=== PATIENT | female | born 1995 | race Caucasian/White ===

== ENCOUNTER 2019-01-10 12:06 | Inpatient (IN) | payer OTHER ==
[~2019-01-10] VITALS: Ht 160 cm; Wt 54.5 kg
[2019-01-10 13:15] VITALS: BP 97/64
--- NOTE | 2019-01-10 13:56 | PDOC2 ---
GI CONSULT Reason For Consult: Anemia HPI: HPI: 23 y/o female who sees Dr. Atkinson. Complicated Crohn's history s/p proctocolectomy w/ J-pouch, then developed active disease w/ fistula, had diverting ileostomy but ultimately pouch removal w/ end ileostomy. Last surgery in 2015. Currently on Entyvio - I believe last on 11/29/18, issues w/ non- compliance/missed dose prior to this. Ill for 2 weeks w/ fatigue, shortness of breath, "feeling like I'm gonna ." Long h/o SABRINA. Had outpt labs - Hgb was 4.7. Our office contacted her w/ recommendations for admission to the hospital for transfusion, additional labs including retic count, hematology evaluation, and MR enterography. No hematemesis, hematochezia, or melena. No reflux/heartburn, dysphagia, n/v, change in appetite, weight loss, abd pain, or change in bowel habits. Normal ostomy output - typically empties bag 2-4 times daily. No GB, liver, pancreas, or PUD history. Tells me doesn't take iron or B12 - Injectafer earlier this year (?last on 10/08/18). No NSAIDs. No menorrhagia. Previous hematology eval w/ Dr. Worrell @ [facility] - reports normal bone marrow biopsy. EGD in 2013 was normal except for H. pylori negative gastritis. Admitted to [facility] in 08/2016 w/ SBO, fistulogram could not exclude stenosis at ostomy. Ileoscopy by Dr. Atkinson on 10/25/16 showed patchy inflammation, moderate in severity and characterized by congestion (edema), erythema, friability, granularity and aphthous ulcerations in the distal ileum, erythema at ostomy site, and ostomy opening kinked down and to the right. Eval at [place] in 12/2016 - was anemic and transfused, MR enterography showed active Crohn's w/ inflammation and possible fibrotic stricture of neoterminal ileum. 7.5cm of affected ileum w/ moderate dilation of distal small bowel upstream from probable stricture. (Entyvio recommended then w/ consideration for methotrexate.) No previous SBCE. Past treatments includ Cimzia, Humira, Remicade, Imuran, Methotrexate. H/o C Diff. Missing the [employer] - her preference is to have transfusion and discharge BRIAN. PMH: PMH: asthma, debridement of perineal wound + HPI FH: Family History: Cancer (breast), DM, Hypertension, Other (MGF - colon polyps) Social History: Smoke: No ALCOHOL: none Drugs: None ROS: GEN: +fatigue HEENT: Denies blurred vision, sore throat CV: Denies chest pain RESP: +SOA GI: Per HPI : Denies hematuria, dysuria ENDO: Denies weight changes NEURO: Denies confusion, dizziness MSK: +weakness SKIN: Denies jaundice, pruritus Vitals: Vitals: Vital Signs Date Time Temp Pulse Resp B/P (MAP) Pulse Ox O2 Delivery O2 Flow Rate FiO2 01/10/19 13:15 98.0 111 18 97/64 (75) 100 Room Air 98.0 Allergies: Coded Allergies: amoxicillin (Verified Allergy, Intermediate, Hives, 12/02/18) infliximab (Verified Allergy, Intermediate, Hives, 12/02/18) azathioprine (Verified Allergy, Unknown, 12/02/18) RED MAN SYNDROME vancomycin (Verified Allergy, Unknown, Hives, 12/02/18) Imaging: Imaging: - PE: GEN: NAD HEENT: Atraumatic, PERRL LUNGS: CTAB HEART: RRR ABD: NABS, S/ND/NT, RLQ ostomy EXTREMITY: No edema SKIN: No rashes, no jaundice NEURO/PSYCH: A & O �3 A/P: A/P: Crohn's disease Profound anemia - Hgb 4.7 as outpt yesterday, previous hematology eval/bone marrow biopsy w/ Dr. Worrell -- No MRE available at [facility]. Reviewed w/ Dr. Chaudhary - check CT enterography, basic labs, iron, B12. Plan for transfusion 3 units pRBCs - called and d/w JANETTE Nolan. NPO for now - hopefully able to do CT today? Okay to eat after. Will ask for hematology opinion as previously discussed. She is disappoint that MRE is not available and wants to discharge BRIAN to attend her gymnastics conference. PATRICIA KELLY Jan 10, 2019 13:56
[2019-01-10 15:06] VITALS: BP 82/48
[2019-01-10 15:14] LABS: BASO % 0 % (0-3); EOS % 0 % (0-3); LYMPH % 15 % (24-48); MEAN CORPUSCULAR HEMOGLOBIN 20 pg (25-35); MEAN CORPUSCULAR HGB CONC 30 g/dL (31-37); MEAN CORPUSCULAR VOLUME 66 fL (79-100); MONO # 0.4 x10^3/uL (0.0-1.1); MONO % 7 % (0-9); NEUT # 4.9 x10^3/uL (1.8-7.7); NEUT % 78 % (31-73); PLATELET COUNT 464 x10^3/uL (140-400); RED BLOOD COUNT 2.09 x10^6/uL (3.50-5.40); RED CELL DISTRIBUTION WIDTH 20.4 % (11.5-14.5); WHITE BLOOD COUNT 6.3 x10^3/uL (4.0-11.0)
[2019-01-10 15:23] LABS: HEMATOCRIT 13.9 % (36.0-47.0); HEMOGLOBIN 4.2 g/dL (12.0-15.5)
[2019-01-10 15:24] LABS: ALBUMIN 2.6 g/dL (3.4-5.0); ALBUMIN/GLOBULIN RATIO 0.7 (1.0-1.7); CALCIUM 7.9 mg/dL (8.5-10.1); CREATININE 0.7 mg/dL (0.6-1.0); POTASSIUM 3.5 mmol/L (3.5-5.1); TOTAL BILIRUBIN 0.3 mg/dL (0.2-1.0); TOTAL PROTEIN 6.1 g/dL (6.4-8.2)
--- NOTE | 2019-01-10 15:40 | HP ---
ADMIT DATE: 01/10/2019 CHIEF COMPLAINT: Anemia. HISTORY OF PRESENT ILLNESS: The patient is a pleasant middle-aged 23-year-old female who has Crohn disease. Basically, she follows with Dr. Atkinson normally. She was [facility] at the [facility] yesterday, they luiz some blood. Today, they called her and explained her hemoglobin is 4.7. They called me and explained that the patient needed to be admitted. I accepted the patient. She is now being examined on the medical floor. PAST MEDICAL HISTORY: Crohn's, headaches, cardiac murmur, irritable bowel syndrome, ileostomy C. diff. ALLERGIES: None. FAMILY HISTORY: Hypertension. SOCIAL HISTORY: She does not drink, smoke or take drugs. 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 MEDICATIONS: Reviewed, please refer to the MRAD. REVIEW OF SYSTEMS: GENERAL: No history of weight change, weakness or fevers. SKIN: No bruising, hair changes or rashes. EYES: No blurred, double or loss of vision. NOSE AND THROAT: No history of nosebleeds, hoarseness or sore throat. HEART: No history of palpitations, chest pain or shortness of breath on exertion. LUNGS: Denies cough, hemoptysis, wheezing or shortness of breath. GASTROINTESTINAL: Denies changes in appetite, nausea, vomiting, diarrhea or constipation. GENITOURINARY: No history of frequency, urgency, hesitancy or nocturia. NEUROLOGIC: Denies history of numbness, tingling, tremor or weakness. PSYCHIATRIC: No history of panic, anxiety or depression. ENDOCRINE: No history of heat or cold intolerance, polyuria or polydipsia. EXTREMITIES: Denies muscle weakness, joint pain, pain on walking or stiffness. PHYSICAL EXAMINATION: VITALS: Within normal limits and are stable. GENERAL: No apparent distress. Alert and oriented. HEENT: Head is normocephalic, atraumatic, pupils were equally round and reactive to light and accommodation. NECK: Supple, no JVD, no thyromegaly was noted. LUNGS: Clear to auscultation in all lung schultz without rhonchi or wheezing. HEART: RRR, S1, S2 present. Peripheral pulses intact, no obvious murmurs were noted. ABDOMEN: Soft, nontender. Positive bowel sounds no organomegaly, normal bowel sounds. EXTREMITIES: Without any cyanosis, clubbing, or edema. Pedal pulses intact, Homans sign is negative. NEUROLOGIC: Normal speech, normal tone. A & O x3, moves all extremities, no obvious focal deficits. PSYCHIATRIC: Normal affect, normal mood. Stable. SKIN: No ulcerations or rashes, good skin turgor, no jaundice. VASCULAR: Good capillary refill, neurovascular bundle appears to be intact. ASSESSMENT AND PLAN: [id number] anemia secondary to Crohn's. The patient is being admitted. We will transfuse 2 units of packed red blood cells. I discussed the case with the nurse practitioner for GI. They have also talked to Dr. Atkinson and she would like us to order some serology. We will recheck hemoglobin in the morning. If stable, we hope to discharge. AN NESBITT DO DR: LEONA/keaton JOB#: [id number] / [id number]
[2019-01-10] MEDS ORDERED: IOHEXOL 300 MG/ML 100ML VIAL. IV ONE (15:45)
--- NOTE | 2019-01-10 15:50 | NUR ---
PATIENT CONSUMED 1,350CC (4 bOTTLES) OF IV CONTRAST. Addendum: 01/10/19 at 1942 by JANI ORANTES RN Amended: Links added.
[2019-01-10 16:41] LABS: U PREG PATIENT NEGATIVE (NEG)
[2019-01-10 17:00] LABS: ANISOCYTOSIS SLIGHT; HYPOCHROMIA MOD; MICROCYTOSIS MOD; PLT ESTIMATE INCREASED (ADEQUATE)
[2019-01-10] MEDS ORDERED: IRON SUCROSE COMPLEX 500 MG in IV NORMAL SALINE 250ML 250 ML IV ONE (18:00)
[2019-01-10 19:00] VITALS: BP 92/51
[2019-01-10] MEDS ORDERED: diphenhydrAMINE HCL 25 MG CAPSULE PO PRN (21:00)
[2019-01-10] MEDS ORDERED: ACETAMINOPHEN 325 MG TABLET. PO PRN (21:00)
[2019-01-10 23:02] VITALS: BP 98/64
[2019-01-10] MEDS: MORPHINE SULFATE 2 MG/ML VIAL. IV PRN (23:45)
[2019-01-11] VITALS (14 sets, daily range): BP systolic 81–100; BP diastolic 39–61
--- NOTE | 2019-01-11 00:39 | CONS ---
DATE OF CONSULTATION: 01/10/2019 HEMATOLOGY/ONCOLOGY CONSULTATION REQUESTING PHYSICIAN: Dr. Ned Domingo. REASON FOR CONSULTATION: Microcytic anemia. HISTORY OF PRESENT ILLNESS: The patient is a 23-year-old female who has a history of Crohn's disease and history of iron-deficiency anemia chronically. She has had a history of iron infusions in the past. She used to see sql report developer, Dr. Worrell, who had also performed a bone marrow biopsy at [facility] and it was unremarkable. She has then been followed by her blood tester fowl, Dr. Florencia Atkinson, who has been monitoring her iron studies and transfusing her as needed. She noticed worsening fatigue and exertional dyspnea of 2 weeks' duration prior to admission to the hospital on 01/10/2019. Her hemoglobin was noted to be 4.2 and she was ordered blood transfusion and Hematology consultation was also requested. The patient has a history of proctocolectomy with J-pouch and then she had active disease with fistula, needing diverting ileostomy and pouch removal and end ileostomy. Her last surgery for Crohn's disease was in 2015. She is currently on Entyvio. She denies hematemesis, melena or hematochezia. No hemoptysis or hematuria. She was also evaluated at [facility] in 12/2016 and she was given transfusion for anemia. MR enterography showed active Crohn's disease with inflammation and possible fibrotic stricture of the neoterminal ileum. PAST MEDICAL HISTORY: Asthma and Crohn's disease as described above, requiring surgeries. FAMILY HISTORY: Positive for breast cancer, hypertension and diabetes. SOCIAL HISTORY: No smoking or alcohol abuse. REVIEW OF SYSTEMS: A 12-point review of system was performed. Pertinent positives are mentioned in the history of present illness. Rest of the system review is negative. PHYSICAL EXAMINATION: GENERAL APPEARANCE: The patient is a 23-year-old female who is in no acute cardiorespiratory distress. VITAL SIGNS: Blood pressure 82/48 and temperature 98 degrees. HEAD: Atraumatic, normocephalic. EYES: No icterus. NECK: Supple. CHEST: Bilaterally symmetrical. HEART: S1, S2 normal. ABDOMEN: Soft, nontender. CENTRAL NERVOUS SYSTEM: No focal deficits. LYMPHATICS: No lymphadenopathy. SKIN: No rashes. PSYCHOLOGIC: Mood and affect are appropriate. LABORATORY DATA: WBC 6.3, hemoglobin 4.2, MCV 66, and platelet count 464. Retic count 2.3. Creatinine 0.7. Iron level is 9 and iron saturation is only 3%. IMPRESSION AND PLAN: 1. Hypochromic microcytic anemia secondary to iron deficiency. Iron saturation is only 3%. I will give her IV Venofer 500 mg x 1 on 01/10/2019. I have recommended continued followup with her primary care physician or blood tester fowl as outpatient for management of anemia and iron infusions or blood transfusions as needed. I do not suspect a primary bone marrow disorder because her WBC is normal. Low MCV and elevated platelets are all consistent with iron-deficiency anemia. 2. Thrombocytosis due to iron-deficiency anemia. Continue monitoring. 3. Crohn's disease, management per Gastroenterology. YUVAL ROMERO MD DR: Imelda JOB#: [id number] / [id number] NICK
[2019-01-11] MEDS: MORPHINE SULFATE 2 MG/ML VIAL. IV PRN (02:54)
--- NOTE | 2019-01-11 09:07 | PDOC ---
PROGRESS NOTES Chief Complaint Chief Complaint Acute blood loss anemia - likely GI loss, has outpatient w/u. transfused 3 u PRBC. hemodynamically stable Hypochromic microcytic anemia secondary to iron deficiency - s/p IV Venofer 500 mg x 1 on 01/10/2019. outpatient for management of anemia and iron infusions or blood transfusions as needed. Thrombocytosis due to iron-deficiency anemia. Continue monitoring. Crohn's disease, management per Gastroenterology. History of Present Illness History of Present Illness Ms Das is a 23 yo female w/ PMHx Crohn's disease and history of iron- deficiency anemia chronically. She has had a history of iron infusions in the past. Negative bone marrow biopsy, transfusing her as needed outpatient. She noticed worsening fatigue and exertional dyspnea of 2 weeks' duration prior to admission to the hospital on 01/10/2019. Her hemoglobin was noted to be 4.2 and she was ordered blood transfusion and Hematology consultation and GI consultation requested. 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 Her last surgery for Crohn's disease was in 2015. She is currently on Entyvio. MR enterography showed active Crohn's disease with inflammation and possible fibrotic stricture of the neoterminal ileum. She is feeling symptomatically better today, no lightheadedness or dizziness. No transfusion reaction. Plan to transfuse and discharge today. Long discussion about follow up and need for taking control of her disease, education with mother bedside. Vitals Vitals Vital Signs Date Time Temp Pulse Resp B/P (MAP) Pulse Ox O2 Delivery O2 Flow Rate FiO2 01/11/19 08:20 98.1 59 20 94/53 98.1 01/11/19 07:43 Room Air 01/11/19 07:25 99 Physical Exam General: Alert, Oriented X3, Cooperative Heart: Regular rate, Normal S1, Normal S2 Lungs: Clear Abdomen: Normal bowel sounds, Soft Extremities: No clubbing, No cyanosis Skin: No rashes, No breakdown Labs LABS Laboratory Tests Test 01/10/19 14:45 01/10/19 16:30 White Blood Count 6.3 x10^3/uL (4.0-11.0) Red Blood Count 2.09 x10^6/uL (3.50-5.70) Hemoglobin 4.2 g/dL (12.0-15.5) Hematocrit 13.9 % (36.0-47.0) Mean Corpuscular Volume 66 fL (79-100) Mean Corpuscular Hemoglobin 20 pg (25-35) Mean Corpuscular Hemoglobin Concent 30 g/dL (31-37) Red Cell Distribution Width 20.4 % (11.5-14.5) Platelet Count 464 x10^3/uL (140-400) Neutrophils (%) (Auto) 78 % (31-73) Lymphocytes (%) (Auto) 15 % (24-48) Monocytes (%) (Auto) 7 % (0-9) Eosinophils (%) (Auto) 0 % (0-3) Basophils (%) (Auto) 0 % (0-3) Neutrophils # (Auto) 4.9 x10^3/uL (1.8-7.7) Lymphocytes # (Auto) 1.0 x10^3/uL (1.0-4.8) Monocytes # (Auto) 0.4 x10^3/uL (0.0-1.1) Eosinophils # (Auto) 0.0 x10^3/uL (0.0-0.7) Basophils # (Auto) 0.0 x10^3/uL (0.0-0.2) Platelet Estimate Increased (ADEQUATE) Hypochromasia Mod Anisocytosis Slight Microcytosis Mod Absolute Reticulocyte Count 0.048 x10^6/uL (0.020-0.120) Percent Reticulocyte Count 2.3 % (0.5-2.3) Immature Reticulocyte Fraction 0.40 (0.20-0.60) Sodium Level 142 mmol/L (136-145) Potassium Level 3.5 mmol/L (3.5-5.1) Chloride Level 108 mmol/L (98-107) Carbon Dioxide Level 26 mmol/L (21-32) Anion Gap 8 (6-14) Blood Urea Nitrogen 11 mg/dL (7-20) Creatinine 0.7 mg/dL (0.6-1.0) Estimated GFR (Cockcroft-Gault) 102.0 BUN/Creatinine Ratio 16 (6-20) Glucose Level 87 mg/dL (70-99) Calcium Level 7.9 mg/dL (8.5-10.1) Iron Level 9 ug/dL (50-170) Total Iron Binding Capacity 272 ug/dL (250-450) Iron Saturation 3 % (15-34) Ferritin 1 ng/mL (8-252) Total Bilirubin 0.3 mg/dL (0.2-1.0) Aspartate Amino Transf (AST/SGOT) 10 U/L (15-37) Alanine Aminotransferase (ALT/SGPT) 14 U/L (14-59) Alkaline Phosphatase 43 U/L (46-116) Creatine Kinase 39 U/L (26-192) Total Protein 6.1 g/dL (6.4-8.2) Albumin 2.6 g/dL (3.4-5.0) Albumin/Globulin Ratio 0.7 (1.0-1.7) Vitamin B12 Level 305 pg/mL (247-911) Urine Test Negative (NEG) Comment Review of Relevant I have reviewed the following items elisabeth (where applicable) has been applied. Labs Laboratory Tests Test 01/10/19 14:45 01/10/19 16:30 White Blood Count 6.3 x10^3/uL (4.0-11.0) Red Blood Count 2.09 x10^6/uL (3.50-5.70) Hemoglobin 4.2 g/dL (12.0-15.5) Hematocrit 13.9 % (36.0-47.0) Mean Corpuscular Volume 66 fL (79-100) Mean Corpuscular Hemoglobin 20 pg (25-35) Mean Corpuscular Hemoglobin Concent 30 g/dL (31-37) Red Cell Distribution Width 20.4 % (11.5-14.5) Platelet Count 464 x10^3/uL (140-400) Neutrophils (%) (Auto) 78 % (31-73) Lymphocytes (%) (Auto) 15 % (24-48) Monocytes (%) (Auto) 7 % (0-9) Eosinophils (%) (Auto) 0 % (0-3) Basophils (%) (Auto) 0 % (0-3) Neutrophils # (Auto) 4.9 x10^3/uL (1.8-7.7) Lymphocytes # (Auto) 1.0 x10^3/uL (1.0-4.8) Monocytes # (Auto) 0.4 x10^3/uL (0.0-1.1) Eosinophils # (Auto) 0.0 x10^3/uL (0.0-0.7) Basophils # (Auto) 0.0 x10^3/uL (0.0-0.2) Platelet Estimate Increased (ADEQUATE) Hypochromasia Mod Anisocytosis Slight Microcytosis Mod Absolute Reticulocyte Count 0.048 x10^6/uL (0.020-0.120) Percent Reticulocyte Count 2.3 % (0.5-2.3) Immature Reticulocyte Fraction 0.40 (0.20-0.60) Sodium Level 142 mmol/L (136-145) Potassium Level 3.5 mmol/L (3.5-5.1) Chloride Level 108 mmol/L (98-107) Carbon Dioxide Level 26 mmol/L (21-32) Anion Gap 8 (6-14) Blood Urea Nitrogen 11 mg/dL (7-20) Creatinine 0.7 mg/dL (0.6-1.0) Estimated GFR (Cockcroft-Gault) 102.0 BUN/Creatinine Ratio 16 (6-20) Glucose Level 87 mg/dL (70-99) Calcium Level 7.9 mg/dL (8.5-10.1) Iron Level 9 ug/dL (50-170) Total Iron Binding Capacity 272 ug/dL (250-450) Iron Saturation 3 % (15-34) Ferritin 1 ng/mL (8-252) Total Bilirubin 0.3 mg/dL (0.2-1.0) Aspartate Amino Transf (AST/SGOT) 10 U/L (15-37) Alanine Aminotransferase (ALT/SGPT) 14 U/L (14-59) Alkaline Phosphatase 43 U/L (46-116) Creatine Kinase 39 U/L (26-192) Total Protein 6.1 g/dL (6.4-8.2) Albumin 2.6 g/dL (3.4-5.0) Albumin/Globulin Ratio 0.7 (1.0-1.7) Vitamin B12 Level 305 pg/mL (247-911) Urine Test Negative (NEG) Laboratory Tests Test 01/10/19 14:45 01/10/19 16:30 White Blood Count 6.3 x10^3/uL (4.0-11.0) Red Blood Count 2.09 x10^6/uL (3.50-5.70) Hemoglobin 4.2 g/dL (12.0-15.5) Hematocrit 13.9 % (36.0-47.0) Mean Corpuscular Volume 66 fL (79-100) Mean Corpuscular Hemoglobin 20 pg (25-35) Mean Corpuscular Hemoglobin Concent 30 g/dL (31-37) Red Cell Distribution Width 20.4 % (11.5-14.5) Platelet Count 464 x10^3/uL (140-400) Neutrophils (%) (Auto) 78 % (31-73) Lymphocytes (%) (Auto) 15 % (24-48) Monocytes (%) (Auto) 7 % (0-9) Eosinophils (%) (Auto) 0 % (0-3) Basophils (%) (Auto) 0 % (0-3) Neutrophils # (Auto) 4.9 x10^3/uL (1.8-7.7) Lymphocytes # (Auto) 1.0 x10^3/uL (1.0-4.8) Monocytes # (Auto) 0.4 x10^3/uL (0.0-1.1) Eosinophils # (Auto) 0.0 x10^3/uL (0.0-0.7) Basophils # (Auto) 0.0 x10^3/uL (0.0-0.2) Platelet Estimate Increased (ADEQUATE) Hypochromasia Mod Anisocytosis Slight Microcytosis Mod Absolute Reticulocyte Count 0.048 x10^6/uL (0.020-0.120) Percent Reticulocyte Count 2.3 % (0.5-2.3) Immature Reticulocyte Fraction 0.40 (0.20-0.60) Sodium Level 142 mmol/L (136-145) Potassium Level 3.5 mmol/L (3.5-5.1) Chloride Level 108 mmol/L (98-107) Carbon Dioxide Level 26 mmol/L (21-32) Anion Gap 8 (6-14) Blood Urea Nitrogen 11 mg/dL (7-20) Creatinine 0.7 mg/dL (0.6-1.0) Estimated GFR (Cockcroft-Gault) 102.0 BUN/Creatinine Ratio 16 (6-20) Glucose Level 87 mg/dL (70-99) Calcium Level 7.9 mg/dL (8.5-10.1) Iron Level 9 ug/dL (50-170) Total Iron Binding Capacity 272 ug/dL (250-450) Iron Saturation 3 % (15-34) Ferritin 1 ng/mL (8-252) Total Bilirubin 0.3 mg/dL (0.2-1.0) Aspartate Amino Transf (AST/SGOT) 10 U/L (15-37) Alanine Aminotransferase (ALT/SGPT) 14 U/L (14-59) Alkaline Phosphatase 43 U/L (46-116) Creatine Kinase 39 U/L (26-192) Total Protein 6.1 g/dL (6.4-8.2) Albumin 2.6 g/dL (3.4-5.0) Albumin/Globulin Ratio 0.7 (1.0-1.7) Vitamin B12 Level 305 pg/mL (247-911) Urine Test Negative (NEG) Medications Current Medications Iohexol (Omnipaque 300 Mg/ml) 75 ml 1X ONCE IV ; Start 01/10/19 at 15:45; Stop 01/10/19 at 15:46; Status DC Iron Sucrose 500 mg/Sodium Chloride 275 ml @ 78.571 mls/ hr 1X ONCE IV Last administered on 01/10/19at 17:49; Start 01/10/19 at 18:00; Stop 01/10/19 at 21:29; Status DC Diphenhydramine HCl (Benadryl) 25 mg PRN Q6HRS PRN PO ITCHING Last administered on 01/10/19at 21:13; Start 01/10/19 at 21:00 Acetaminophen (Tylenol) 650 mg PRN Q6HRS PRN PO FEVER Last administered on 01/10/19at 21:13; Start 01/10/19 at 21:00 Morphine Sulfate (Morphine Sulfate) 2 mg PRN Q3HRS PRN IV PAIN Last administered on 01/11/19at 02:54; Start 01/10/19 at 23:30 Cyanocobalamin (Vitamin B-12) 1,000 mcg 1X ONCE IM ; Start 01/11/19 at 09:15; Stop 01/11/19 at 09:16; Status UNV Vitals/I & O Vital Sign - Last 24 Hours 01/10/19 01/10/19 01/10/19 01/10/19 13:15 14:45 15:06 19:00 Temp 98.0 98.0 98.2 98.0 98.0 98.2 Pulse 111 114 117 Resp 18 18 18 B/P (MAP) 97/64 (75) 82/48 (59) 92/51 (65) Pulse Ox 100 100 O2 Delivery Room Air Room Air Room Air Room Air 01/10/19 01/10/19 01/10/19 01/10/19 19:45 23:02 23:02 23:45 Temp 98.9 98.9 98.9 98.9 Pulse 100 100 Resp 20 20 B/P (MAP) 98/64 98/64 (75) Pulse Ox 99 O2 Delivery Room Air Room Air Room Air 01/11/19 01/11/19 01/11/19 01/11/19 00:02 01:02 01:34 02:13 Temp 98.1 98.5 98.5 98.1 98.5 98.5 Pulse 93 76 87 Resp 18 20 18 B/P (MAP) 91/55 88/47 87/49 O2 Delivery Room Air 01/11/19 01/11/19 01/11/19 01/11/19 02:54 03:01 03:14 04:04 Temp 98.5 98.3 98.5 98.3 Pulse 87 93 Resp 18 18 B/P (MAP) 87/49 (62) 96/39 Pulse Ox 98 O2 Delivery Room Air Room Air Room Air 01/11/19 01/11/19 01/11/19 01/11/19 04:16 05:16 06:36 07:25 Temp 98.4 98.4 98.3 98.3 98.4 98.4 98.3 98.3 Pulse 77 64 66 67 Resp 16 16 14 B/P (MAP) 83/43 81/45 82/41 85/46 (59) Pulse Ox 99 O2 Delivery Room Air 01/11/19 01/11/19 07:43 08:20 Temp 98.1 98.1 Pulse 59 Resp 20 B/P (MAP) 94/53 O2 Delivery Room Air Intake and Output 01/10/19 01/10/19 01/11/19 14:59 22:59 06:59 Intake Total 1655 ml 985 ml Balance 1655 ml 985 ml ANDREW QUEZADA MD Jan 11, 2019 09:07
[2019-01-11] MEDS ORDERED: CYANOCOBALAMIN (VITAMIN B-12) 1,000 MCG/ML VIAL IM ONE (09:15)
--- NOTE | 2019-01-11 09:52 | RAD ---
PQRS Compliance Statement: One or more of the following individualized dose reduction techniques were utilized for this examination: 1. Automated exposure control 2. Adjustment of the mA and/or kV according to patient size 3. Use of iterative reconstruction technique CT ENTEROGRAPHY WO/W CONTRAST Clinical Indication: Crohn's, profound anemia without obvious blood loss. Comparison: None. TECHNIQUE: Helical CT imaging of the abdomen and pelvis is performed after patient drank 3 bottles of Volumen and 75 cc Omnipaque 300 IV contrast. Findings: Lung bases are clear. Cardiac size normal. There is a 12 mm probable hemangioma of the right hepatic lobe. Tiny hypodensity in segment 2 of the liver is too small to further characterize. Liver otherwise homogeneous. The gallbladder, spleen, pancreas, adrenal glands, abdominal aorta, and kidneys are normal. Stomach unremarkable. Patient has had total colectomy. There is right lower quadrant ostomy. The small bowel proximal to the ostomy is moderately distended with fluid. Question mild wall thickening at the ostomy. There is mild mural thickening of small bowel proximal to the ostomy. No transmural hyperenhancement is identified. Proximal small bowel is not dilated. No abdominal adenopathy. Trace fluid along right paracolic gutter adjacent to distal small bowel. Retroverted uterus. Mild pelvic free fluid. No acute bone abnormality. IMPRESSION: 1. Small bowel proximal to right lower quadrant ostomy is moderately distended. Mild wall thickening at the ostomy may be due to active Crohn's disease versus stricture. 2. There is mild mural thickening of distal small bowel suggesting active Crohn's disease versus nonspecific enteritis. 3. Mild pelvic free fluid may be physiologic. 4. Small hepatic hemangioma. Electronically signed by: Bill Sloan MD (01/11/2019 9:49 AM) [facility]
[2019-01-11] MEDS ORDERED: IV NORMAL SALINE 1000ML BAG 1,000 ML IV ONE (10:20)
--- NOTE | 2019-01-11 11:56 | PDOC3 ---
Discharge Summary Visit Information Date of Admission: Jan 10, 2019 Date of Discharge: Jan 11, 2019 Admitting Diagnosis: Acute blood loss anemia Final Diagnosis Acute blood loss anemia Brief Hospital Course Allergies Allergies Coded Allergies Type Severity Reaction Last Updated Verified amoxicillin Allergy Intermediate Hives 12/02/18 Yes infliximab Allergy Intermediate Hives 12/02/18 Yes azathioprine Allergy Unknown 12/02/18 Yes vancomycin Allergy Unknown Hives 12/02/18 Yes Vital Signs Vital Signs Date Time Temp Pulse Resp B/P (MAP) Pulse Ox O2 Delivery O2 Flow Rate FiO2 01/11/19 11:27 98.8 68 18 100/61 (74) 99 Room Air 98.8 Lab Results Laboratory Tests Test 01/10/19 14:45 01/10/19 16:30 White Blood Count 6.3 x10^3/uL (4.0-11.0) Red Blood Count 2.09 x10^6/uL (3.50-5.70) Hemoglobin 4.2 g/dL (12.0-15.5) Hematocrit 13.9 % (36.0-47.0) Mean Corpuscular Volume 66 fL (79-100) Mean Corpuscular Hemoglobin 20 pg (25-35) Mean Corpuscular Hemoglobin Concent 30 g/dL (31-37) Red Cell Distribution Width 20.4 % (11.5-14.5) Platelet Count 464 x10^3/uL (140-400) Neutrophils (%) (Auto) 78 % (31-73) Lymphocytes (%) (Auto) 15 % (24-48) Monocytes (%) (Auto) 7 % (0-9) Eosinophils (%) (Auto) 0 % (0-3) Basophils (%) (Auto) 0 % (0-3) Neutrophils # (Auto) 4.9 x10^3/uL (1.8-7.7) Lymphocytes # (Auto) 1.0 x10^3/uL (1.0-4.8) Monocytes # (Auto) 0.4 x10^3/uL (0.0-1.1) Eosinophils # (Auto) 0.0 x10^3/uL (0.0-0.7) Basophils # (Auto) 0.0 x10^3/uL (0.0-0.2) Platelet Estimate Increased (ADEQUATE) Hypochromasia Mod Anisocytosis Slight Microcytosis Mod Absolute Reticulocyte Count 0.048 x10^6/uL (0.020-0.120) Percent Reticulocyte Count 2.3 % (0.5-2.3) Immature Reticulocyte Fraction 0.40 (0.20-0.60) Sodium Level 142 mmol/L (136-145) Potassium Level 3.5 mmol/L (3.5-5.1) Chloride Level 108 mmol/L (98-107) Carbon Dioxide Level 26 mmol/L (21-32) Anion Gap 8 (6-14) Blood Urea Nitrogen 11 mg/dL (7-20) Creatinine 0.7 mg/dL (0.6-1.0) Estimated GFR (Cockcroft-Gault) 102.0 BUN/Creatinine Ratio 16 (6-20) Glucose Level 87 mg/dL (70-99) Calcium Level 7.9 mg/dL (8.5-10.1) Iron Level 9 ug/dL (50-170) Total Iron Binding Capacity 272 ug/dL (250-450) Iron Saturation 3 % (15-34) Ferritin 1 ng/mL (8-252) Total Bilirubin 0.3 mg/dL (0.2-1.0) Aspartate Amino Transf (AST/SGOT) 10 U/L (15-37) Alanine Aminotransferase (ALT/SGPT) 14 U/L (14-59) Alkaline Phosphatase 43 U/L (46-116) Creatine Kinase 39 U/L (26-192) Total Protein 6.1 g/dL (6.4-8.2) Albumin 2.6 g/dL (3.4-5.0) Albumin/Globulin Ratio 0.7 (1.0-1.7) Vitamin B12 Level 305 pg/mL (247-911) Urine Test Negative (NEG) Laboratory Tests Test 01/10/19 14:45 01/10/19 16:30 White Blood Count 6.3 x10^3/uL (4.0-11.0) Red Blood Count 2.09 x10^6/uL (3.50-5.70) Hemoglobin 4.2 g/dL (12.0-15.5) Hematocrit 13.9 % (36.0-47.0) Mean Corpuscular Volume 66 fL (79-100) Mean Corpuscular Hemoglobin 20 pg (25-35) Mean Corpuscular Hemoglobin Concent 30 g/dL (31-37) Red Cell Distribution Width 20.4 % (11.5-14.5) Platelet Count 464 x10^3/uL (140-400) Neutrophils (%) (Auto) 78 % (31-73) Lymphocytes (%) (Auto) 15 % (24-48) Monocytes (%) (Auto) 7 % (0-9) Eosinophils (%) (Auto) 0 % (0-3) Basophils (%) (Auto) 0 % (0-3) Neutrophils # (Auto) 4.9 x10^3/uL (1.8-7.7) Lymphocytes # (Auto) 1.0 x10^3/uL (1.0-4.8) Monocytes # (Auto) 0.4 x10^3/uL (0.0-1.1) Eosinophils # (Auto) 0.0 x10^3/uL (0.0-0.7) Basophils # (Auto) 0.0 x10^3/uL (0.0-0.2) Platelet Estimate Increased (ADEQUATE) Hypochromasia Mod Anisocytosis Slight Microcytosis Mod Absolute Reticulocyte Count 0.048 x10^6/uL (0.020-0.120) Percent Reticulocyte Count 2.3 % (0.5-2.3) Immature Reticulocyte Fraction 0.40 (0.20-0.60) Sodium Level 142 mmol/L (136-145) Potassium Level 3.5 mmol/L (3.5-5.1) Chloride Level 108 mmol/L (98-107) Carbon Dioxide Level 26 mmol/L (21-32) Anion Gap 8 (6-14) Blood Urea Nitrogen 11 mg/dL (7-20) Creatinine 0.7 mg/dL (0.6-1.0) Estimated GFR (Cockcroft-Gault) 102.0 BUN/Creatinine Ratio 16 (6-20) Glucose Level 87 mg/dL (70-99) Calcium Level 7.9 mg/dL (8.5-10.1) Iron Level 9 ug/dL (50-170) Total Iron Binding Capacity 272 ug/dL (250-450) Iron Saturation 3 % (15-34) Ferritin 1 ng/mL (8-252) Total Bilirubin 0.3 mg/dL (0.2-1.0) Aspartate Amino Transf (AST/SGOT) 10 U/L (15-37) Alanine Aminotransferase (ALT/SGPT) 14 U/L (14-59) Alkaline Phosphatase 43 U/L (46-116) Creatine Kinase 39 U/L (26-192) Total Protein 6.1 g/dL (6.4-8.2) Albumin 2.6 g/dL (3.4-5.0) Albumin/Globulin Ratio 0.7 (1.0-1.7) Vitamin B12 Level 305 pg/mL (247-911) Urine Test Negative (NEG) Brief Hospital Course Ms Das is a 23 yo female w/ PMHx Crohn's disease and history of iron- deficiency anemia chronically. She has had a history of iron infusions in the past. Negative bone marrow biopsy, transfusing her as needed outpatient. She noticed worsening fatigue and exertional dyspnea of 2 weeks' duration prior to admission to the hospital on 01/10/2019. Her hemoglobin was noted to be 4.2 and she was ordered blood transfusion and Hematology consultation and GI consultation requested. 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 Her last surgery for Crohn's disease was in 2016. She is currently on Entyvio. MR enterography showed active Crohn's disease with inflammation and possible fibrotic stricture of the neoterminal ileum. She is feeling symptomatically better today, no lightheadedness or dizziness. No transfusion reaction. Plan to transfuse and discharge today. Long discussion about follow up and need for taking control of her disease, education with mother bedside. Acute blood loss anemia - likely GI loss, has outpatient w/u. transfused 3 u PRBC. hemodynamically stable Hypochromic microcytic anemia secondary to iron deficiency - s/p IV Venofer 500 mg x 1 on 01/10/2019. outpatient for management of anemia and iron infusions or blood transfusions as needed. Thrombocytosis due to iron-deficiency anemia. Continue monitoring. Crohn's disease, management per Gastroenterology. Greater than 30 minutes spent on d/c Discharge Information Condition at Discharge: Improved Follow Up: Weeks (1) Disposition/Orders: D/C to Home ANDREW QUEZADA MD Jan 11, 2019 11:56
--- NOTE | 2019-01-11 13:45 | NUR ---
Discharge Note: CHANTAL DIAZ [facility] Discharge instructions and discharge home medications reviewed with Patient and a copy given. All questions have been answered and understanding verbalized. The following instructions and handouts were given: anemia, hypotension. Discontinued lines and drains: left FA peripheral IV removed. Pressure applied. Arm elevated. Patient discharged to home with self-care via ambulation to Private Vehicle. This nurse spoke with Dr. Sanchez who stated not to wait on lab. Pt. can f/u outpatient for labs.
== END 2019-01-11 13:35 | disposition home or self-care (01) | DRG 386 ==
LOC: 5 SOUTH 12:44
PROVIDERS: ADMIT Family Medicine; ATTEND Family Medicine
PROC: 30233N1 Transfusion of Nonautologous Red Blood Cells into Peripheral Vein, Percutaneous Approach (ICD-10-PCS; principal; 2019-01-10)
DX: K50.918 Crohn's disease, unspecified, with other complication (principal); D62 Acute posthemorrhagic anemia; D50.9 Iron deficiency anemia, unspecified; D63.8 Anemia in other chronic diseases classified elsewhere; J45.909 Unspecified asthma, uncomplicated; K12.0 Recurrent oral aphthae; D47.3 Essential (hemorrhagic) thrombocythemia; Z80.3 Family history of malignant neoplasm of breast; Z82.49 Family history of ischemic heart disease and other diseases of the circulatory system; Z83.71 Family history of colonic polyps; Z83.3 Family history of diabetes mellitus; Z88.8 Allergy status to other drugs, medicaments and biological substances
CPT/HCPCS: 36415; 74170; 80053; 81025; 82550; 82607; 82728; 83540; 83550; 85025; 85045; 86850; 86900; 86901; 86902; 86922; J1756; J2270; J3420; J7030; J7050; P9016; Q0163; G0378